=== PATIENT | female | born 1970 | race Caucasian/White ===

== ENCOUNTER 2018-07-15 08:53 | Day surgery (SDC) | payer OTHER ==
[~2018-07-15] VITALS: Ht 157.5 cm; Wt 63.9 kg
[~2018-07-15 08:53] MED LIST: BUPIVACAINE/PF-EPI 0.5% 1:200K ONE
[2018-07-15] MEDS ORDERED: LACTATED RINGERS 1,000 ML IV SCH (09:37)
[2018-07-15] MEDS ORDERED: ESTR0.5T PO (09:39)
[2018-07-15] MEDS ORDERED: ACETAMINOPHEN 500 MG TABLET PO ONE (10:00)
[2018-07-15 10:01] VITALS: BP 113/75
[2018-07-15 10:25] LABS: HCG UR SG 1.016 (1.003-1.030)
[2018-07-15] MEDS ORDERED: FENTANYL PF 100 MCG/2ML ONE ×2 (11:42→13:03)
[2018-07-15] MEDS ORDERED: ONDANSETRON 2MG/ML, 2ML ONE (12:08)
[2018-07-15] MEDS ORDERED: DEXAMETHASONE 4 MG/ML, 1ML ONE (12:08)
[2018-07-15] MEDS ORDERED: CEFAZOLIN 1,000 MG ONE (12:08)
[2018-07-15] MEDS ORDERED: PROPOFOL 10 MG/ML, 20ML ONE (12:08)
[2018-07-15] MEDS ORDERED: HYDROmorphone 1 MG/ML, 1ML IV PRN (12:30)
[2018-07-15] MEDS ORDERED: hydrALAzine 20 MG/ML, 1ML IV PRN (12:30)
[2018-07-15] MEDS ORDERED: MEPERIDINE/PF 25MG/0.5ML IVPush PRN (12:30)
[2018-07-15] MEDS ORDERED: FENTANYL PF 100 MCG/2ML IV PRN (12:30)
[2018-07-15] MEDS ORDERED: PROCHLORPERAZINE 5 MG/ML, 2ML IV PRN (12:30)
[2018-07-15] MEDS ORDERED: OXYcodone 5 MG/5 ML ORAL.SOL UDC PO PRN (12:30)
[2018-07-15] MEDS ORDERED: PROMETHAZINE 25 MG/ML, 1ML IV PRN (12:30)
[2018-07-15] MEDS ORDERED: HALOPERIDOL 5 MG/ML IV PRN (12:30)
[2018-07-15] MEDS ORDERED: DIPHENHYDRAMINE 50 MG/ML, 1ML IVPush PRN (12:30)
[2018-07-15] MEDS ORDERED: LABETALOL 5MG/ML, 20ML IV PRN (12:30)
[2018-07-15] MEDS ORDERED: OXYcodone 5 MG/5 ML ORAL.SOL UDC ONE (12:40)
== END 2018-07-15 16:20 | disposition home or self-care (01) ==
LOC: OUT 08:53
PROVIDERS: ATTEND Surgery
DX: D17.21 Benign lipomatous neoplasm of skin and subcutaneous tissue of right arm (principal); Z98.890 Other specified postprocedural states
CPT/HCPCS: 21552; 81025; 88304; J0690; J1100; J2405; J2704; J3010; J7120; 88305

== ENCOUNTER 2020-06-10 09:27 | Day surgery (SDC) | payer OTHER ==
[2020-06-07 12:18] LABS: BASOPHILS # (AUTO) 0.02 x10^3/uL (0-0.1); BASOPHILS % (AUTO) 0 % (0-1); EOSINOPHILS # (AUTO) 0.14 x10^3/uL (0-0.4); EOSINOPHILS % (AUTO) 2 % (1-7); LYMPHOCYTES # (AUTO) 1.58 x10^3/uL (1-3.4); LYMPHOCYTES % (AUTO) 21 % (22-44); MD NO; MEAN CORPUSCULAR HGB CONC 33.3 g/dL (32.4-35.8); MEAN CORPUSCULAR VOLUME 87.1 fL (80-100); MEAN PLATELET VOLUME 8.2 fL (7.4-10.4); MONOCYTES # (AUTO) 0.52 x10^3/uL (0.2-0.8); MONOCYTES % (AUTO) 7 % (2-9); NEUTROPHILS # (AUTO) 5.27 x10^3/uL (1.8-6.8); NEUTROPHILS % (AUTO) 70 % (42-75); PLATELET COUNT 283 x10^3/uL (130-400); RED BLOOD COUNT 4.71 x10^6/uL (3.82-5.3); RED CELL DISTRIBUTION WIDTH 13.2 % (9.6-15.2)
[2020-06-07 12:29] LABS: MICROSCOPIC AUTO
[~2020-06-10] VITALS: Ht 157.5 cm; Wt 63.1 kg
[~2020-06-10 09:27] MED LIST changes: -BUPIVACAINE/PF-EPI 0.5% 1:200K ONE; +CETI10TA76 PO; +ESTR0.5T PO; +ESTR10IN VG; +MULT-658 PO; +[UNRECOGNIZED DRUG - OTHER] PO; +collagen PO; +flaxseed oil PO; +vitamin c PO
[2020-06-10] MEDS ORDERED: LACTATED RINGERS 1,000 ML IV SCH (09:46)
[2020-06-10 09:48] VITALS: BP 138/81
[2020-06-10] MEDS ORDERED: ACETAMINOPHEN 500 MG TABLET PO ONE (10:00)
[2020-06-10] MEDS ORDERED: GABAPENTIN 300 MG CAPSULE PO ONE (10:00)
[2020-06-10] MEDS ORDERED: CHLORHEXIDINE 15 ML UDC MM ONE (10:00)
[2020-06-10 10:19] LABS: HCG UR SG 1.026 (1.003-1.030)
[2020-06-10] MEDS ORDERED: BUPIVACAINE/PF 0.25% ONE (10:33)
[2020-06-10] MEDS ORDERED: SILVER NITRATE STICK TP ONE (10:33)
[2020-06-10] MEDS ORDERED: MIDAZOLAM 1 MG/ML, 2ML ONE (10:41)
[2020-06-10] MEDS ORDERED: FENTANYL PF 100 MCG/2ML ONE ×2 (10:41→11:54)
[2020-06-10] MEDS ORDERED: PROPOFOL 10 MG/ML, 20ML ONE (10:43)
[2020-06-10] MEDS ORDERED: DEXAMETHASONE 4 MG/ML, 1ML ONE (10:43)
[2020-06-10] MEDS ORDERED: CEFAZOLIN 1,000 MG ONE (10:43)
[2020-06-10] MEDS ORDERED: PROPOFOL 50 ML ONE (10:43)
[2020-06-10] MEDS ORDERED: ONDANSETRON 2MG/ML, 2ML ONE (10:43)
[2020-06-10] MEDS ORDERED: KETOROLAC 30 MG/1 ML ONE (10:51)
[2020-06-10] MEDS ORDERED: LORazepam 2 MG/ML, 1ML IVPush PRN (11:00)
[2020-06-10] MEDS ORDERED: METHOCARBAMOL 1,000 MG in DEXTROSE 5% 100 ML IV PRN (11:00)
[2020-06-10] MEDS ORDERED: PROMETHAZINE 25 MG SUPP PR PRN (11:00)
[2020-06-10] MEDS ORDERED: MEPERIDINE/PF 25MG/0.5ML IVPush PRN (11:00)
[2020-06-10] MEDS ORDERED: OXYcodone 5 MG/5 ML ORAL.SOL UDC PO PRN (11:00)
[2020-06-10] MEDS ORDERED: FENTANYL PF 100 MCG/2ML IV PRN (11:00)
[2020-06-10] MEDS ORDERED: PROMETHAZINE 25 MG/ML, 1ML IVPush PRN (11:00)
[2020-06-10] MEDS ORDERED: HYDROmorphone 1 MG/ML, 1ML INJ IVPush PRN (11:00)
[2020-06-10] MEDS ORDERED: ONDANSETRON 2MG/ML, 2ML IVPush PRN (11:00)
[2020-06-10] MEDS ORDERED: DIAZEPAM 5 MG/ML, 2ML IVPush PRN (11:00)
[2020-06-10] MEDS ORDERED: OXYcodone 5 MG/5 ML ORAL.SOL UDC ONE (11:54)
== END 2020-06-10 16:40 | disposition home or self-care (01) ==
LOC: OUT 09:27
PROVIDERS: ATTEND Obstetrics & Gynecology
DX: N95.0 Postmenopausal bleeding (principal); D25.0 Submucous leiomyoma of uterus; N84.0 Polyp of corpus uteri; J45.909 Unspecified asthma, uncomplicated; Z90.49 Acquired absence of other specified parts of digestive tract; Z98.890 Other specified postprocedural states; Z20.828 Contact with and (suspected) exposure to other viral communicable diseases; Z79.899 Other long term (current) drug therapy
CPT/HCPCS: 36415; 58561; 81001; 81025; 84702; 85025; 87635; 88305; J0690; J1100; J1885; J2250; J2405; J2704; J3010; J3490; J7120